=== PATIENT | male | born 1955 | race African-American/Black ===

== ENCOUNTER 2018-12-29 01:32 | Emergency (ER) | payer SELFPAY ==
[~2018-12-29] VITALS: Ht 190.5 cm; Wt 104.3 kg
[~2018-12-29 01:32] MED LIST: CAFERGOT TABLE1 EACH PO; COMPAZINE10 MG PO; CYCLOBENZAPRINE10 MG ORAL; NORCO 10/3251 EA ORAL; PHENERGAN25 M1 PO; PROCHLORPERAZINE5 MG ORAL; REGLAN10 MG ORAL; VICODIN 5-5001 EACH PO
--- NOTE | 2018-12-29 02:09 | NUR ---
ED Nurse Note: PT CAME TO ED FROM HOME C/O LEFT SIDED BACK PAIN RADIATING TO LEFT LEG PAIN 10/10 PER PT HE IS TAKING NORCO AT HOME PT DROVE HIM TO ER. PT DENIES TRAUMA TO AREA PT SAY IT MAY BE RELATED TO LIFTING HIS MOTHER TO BATHTUB
[2018-12-29 02:12] VITALS: BP 156/93
[2018-12-29] MEDS ORDERED: Morphine Sulfate 4mg/ml Inj (IV/IM USE ONLY) IM ONE (02:30)
[2018-12-29] MEDS ORDERED: Methocarbamol 750mg tab ORAL ONE (02:30)
--- NOTE | 2018-12-29 03:15 | NUR ---
ELOPEMENT: PT LEFT WITHOUT DC PAPERS
[2018-12-29 03:17] VITALS: BP 156/93
--- NOTE | 2018-12-29 21:28 | Emergency Room Report ---
History of Present Illness General Chief Complaint: Back Pain-No Injury Source: Patient Present Illness HPI 54-year-old male presents ED complaining of back pain. Started 3 days ago after lifting his mother in the bathtub. Sharp, 9 out of 10, radiating down the left leg. Denies bowel or bladder incontinence. Denies leg or motor weakness. States he took some [place] prescribed to him previously without significant relief. Denies fevers or chills. Denies dysuria or hematuria. No other aggravating relieving factors. Denies any other associated symptoms Allergies: Uncoded Allergies: MAXALT, TORADOL (Allergy, Unknown, 12/29/18) Patient History Past Medical History: DM Past Surgical History: none Pertinent Family History: none Social History: Denies: smoking, alcohol use, drug use Immunizations: UTD Reviewed Nursing Documentation: PMH: Agreed; PSxH: Agreed Nursing Documentation-PMH Hx Diabetes: Yes Review of Systems All Other Systems: negative except mentioned in HPI Physical Exam Vital Signs Date Time Temp Pulse Resp B/P (MAP) Pulse Ox O2 Delivery O2 Flow Rate FiO2 12/29/18 02:02 98.2 101 20 156/93 99 Room Air Sp02 EP Interpretation: reviewed, normal General Appearance: alert, GCS 15, non-toxic, mild distress Head: normocephalic Eyes: bilateral eye normal inspection, bilateral eye PERRL ENT: normal ENT inspection Neck: normal inspection Respiratory: chest non-tender, lungs clear, normal breath sounds, speaking full sentences Cardiovascular #1: regular rate, rhythm, no edema Gastrointestinal: normal inspection Rectal: deferred Genitourinary: no CVA tenderness, no vertebral tenderness Musculoskeletal: tender - paraspinal lumbar tenderness Neurologic: alert, oriented x3, responsive, motor strength/tone normal, sensory intact, speech normal Psychiatric: normal inspection Skin: normal inspection Lymphatic: normal inspection Medical Decision Making Diagnostic Impression: Primary Impression: Back pain Qualified Codes: M54.42 - Lumbago with sciatica, left side ER Course Hospital Course 54-year-old male presents ED complaining of lower back pain Differential diagnoses include: pyelonephritis, kidney stone, muscle strain, Lspine fracture Clinical course Patient placed on stretcher. After initial history, physical exam reveals a middle-aged male in mild distress. There is no vertebral body tenderness. There is paraspinal lumbar tenderness. No flank pain. No indication for imaging at this time. Consideration for sciatica based on clinical exam. given morphine IM, robaxin, lidoderm patch Patient observed with improved pain. Patient eloped from ED prior to receiving discharge papers Diagnosis - back pain patient eloped from ED Last Vital Signs Date Time Temp Pulse Resp B/P (MAP) Pulse Ox O2 Delivery O2 Flow Rate FiO2 12/29/18 03:17 98.2 101 20 156/93 99 Room Air Status: improved Disposition: ELOPED Condition: Stable Referrals: NOT CHOSEN IPA/,REFERRING (PCP) Vish Flores MD Dec 29, 2018 21:28
== END 2018-12-29 03:15 | disposition left against medical advice (07) ==
LOC: EDBD → EMR 02:20 → MERGE 02:20 → EMR 03:15
DX: M54.42 Lumbago with sciatica, left side (principal); E11.9 Type 2 diabetes mellitus without complications; Z88.8 Allergy status to other drugs, medicaments and biological substances
CPT/HCPCS: 96372; 99283; J2270

== ENCOUNTER 2019-03-21 11:39 | Emergency (ER) | payer SELFPAY ==
[~2019-03-21] VITALS: Ht 190.5 cm; Wt 103.0 kg
[~2019-03-21 11:39] MED LIST changes: +COMPAZINE10 MG ORAL; +IBUPROFEN600 MG ORAL; +PHENERGAN25 M1 ORAL; +PREDNISONE20 MG ORAL; +TYLENOL325 MG ORAL
[2019-03-21 11:49] VITALS: BP 159/110
[2019-03-21] MEDS ORDERED: NORCO 10-325 T1 EACH ORAL (11:56)
[2019-03-21] MEDS ORDERED: CAFERGOT TABLE1 EACH PO (11:57)
[2019-03-21] MEDS ORDERED: ZOFRAN ODT8 MG ORAL (11:57)
[2019-03-21] MEDS ORDERED: METFORMIN500 MG/5 M PO (11:58)
[2019-03-21] MEDS ORDERED: REGLAN10 MG ORAL (11:59)
[2019-03-21] MEDS ORDERED: COMPAZINE10 M2 PO (11:59)
[2019-03-21] MEDS ORDERED: LIDOCAINE700 M1 TP (12:26)
[2019-03-21] MEDS ORDERED: PERCOCET 5-3251 EACH ORAL (12:26)
[2019-03-21] MEDS ORDERED: Morphine Sulfate 2mg/ml Inj(IV/IM USE ONLY) IM ONE (12:30)
--- NOTE | 2019-03-21 12:30 | Emergency Room Report ---
History of Present Illness General Chief Complaint: Lower Back Pain or Injury Source: Patient Present Illness HPI Patient is a 54-year-old male presented after increased low back pain. Patient prior history of chronic back pain for which she has had previous MRIs. He reportedly had prior history of L4 disc disease. He states that he had increased pain radiating to his left leg. Pain is worse with movement. He denies any bowel or bladder dysfunction. He denies any weight loss. He states that he is not losing any weight. He reports having some radiation to his left lower extremity. He had been able to ambulate. Patient reports having prior history of allergy to Toradol. He states that he is diabetic and takes metformin. Allergies: Coded Allergies: RIZATRIPTAN (Verified Allergy, Intermediate, Rash, 08/20/14) KETOROLAC (Unverified Allergy, Mild, Rash, 08/20/14) IBUPROFEN (Verified Allergy, Unknown, 03/21/19) Uncoded Allergies: MAXSALT (Allergy, Mild, Rash, 08/20/14) MAXALT (Allergy, Unknown, 12/09/17) MAXALT, TORADOL (Allergy, Unknown, 01/02/19) TORADOL (Allergy, Unknown, 12/09/17) Patient History Past Medical History: see triage record Reviewed Nursing Documentation: PMH: Agreed; PSxH: Agreed Nursing Documentation-PMH Past Medical History: No History, Except For Hx Cardiac Problems: No - migraines Hx Diabetes: Yes - type 2 Review of Systems All Other Systems: negative except mentioned in HPI Physical Exam Vital Signs Date Time Temp Pulse Resp B/P (MAP) Pulse Ox O2 Delivery O2 Flow Rate FiO2 03/21/19 11:49 98.1 94 20 159/110 95 Room Air General Appearance: well appearing, no apparent distress, alert, GCS 15 Head: normocephalic, atraumatic ENT: hearing grossly normal, normal voice Neck: full range of motion, supple Respiratory: no respiratory distress, speaking full sentences Cardiovascular #1: normal inspection Gastrointestinal: normal inspection, normal bowel sounds Musculoskeletal: normal inspection, no calf tenderness, decreased range of mation, other - increased pain with ROM Neurologic: normal inspection, alert, oriented x3, responsive, normal gait Psychiatric: mood/affect normal Skin: no rash Medical Decision Making Diagnostic Impression: Primary Impression: Lumbar disc disease Additional Impression: Chronic pain ER Course Patient presented for low back pain. Differential diagnosis included but was not limited to herniated disc, cauda equina syndrome, abdominal aortic aneurysm , perforated ulcer, spinal epidural abscess, spinal stenosis, lumbar fracture, metastatic lesion, pyelonephritis. Patient has a benign exam and does not appear to require any further imaging or laboratory testing at this time. Patient appears to have some evidence of sciatica. Patient does not have any significant CVA tenderness or any neurologic deficit. Patient was noted to be ambulatory without assistance. Patient reports having multiple medication allergies.The [facility] database was reviewed for the patient's prior prescription history. Patient was given medications for pain. He was advised to follow-up with his primary care physician for further evaluation and treatment. He was given prescription for pain medications. Last Vital Signs Date Time Temp Pulse Resp B/P (MAP) Pulse Ox O2 Delivery O2 Flow Rate FiO2 03/21/19 11:49 98.0 94 20 159/110 95 Room Air Status: improved Disposition: HOME, SELF-CARE Condition: Stable Scripts Lidocaine (Lidocaine) 1 Each Adh..patch 5 % TP DAILY, #30 PATCH Prov: Pankaj Morgan MD 03/21/19 Oxycodone/Acetaminophen 5-325* (PERCOCET 5-325 MG TABLET*) 1 Each Tablet 1 TAB ORAL Q4H PRN for For Pain, #15 TAB 0 Refills Prov: Pankaj Morgan MD 03/21/19 Patient Instructions: Sciatica With Rehab[facility] Pankaj Morgan MD Mar 21, 2019 12:30
[2019-03-21 12:44] VITALS: BP 145/97
== END 2019-03-21 12:45 | disposition home or self-care (01) ==
LOC: EDBD → EMR 12:44 → MERGE 12:44 → EMR 12:45
DX: M51.36 Other intervertebral disc degeneration, lumbar region (principal); E11.9 Type 2 diabetes mellitus without complications; Z88.8 Allergy status to other drugs, medicaments and biological substances; Z88.6 Allergy status to analgesic agent; Z79.84 Long term (current) use of oral hypoglycemic drugs
CPT/HCPCS: 96372; 99282; J2270

== ENCOUNTER 2019-04-30 16:20 | Emergency (ER) | payer SELFPAY ==
[~2019-04-30] VITALS: Ht 190.5 cm; Wt 103.0 kg
[~2019-04-30 16:20] MED LIST changes: +COMPAZINE10 M2 PO; +LIDOCAINE700 M1 TP; +METFORMIN500 MG/5 M PO; +NORCO 10-325 T1 EACH ORAL; +PERCOCET 5-3251 EACH ORAL; +ZOFRAN ODT8 MG ORAL
[2019-04-30 16:35] VITALS: BP 170/99
--- NOTE | 2019-04-30 16:35 | NUR ---
ED Nurse Note: pt walked in due to sciatica nerve pain, pt stated that the pain started 7 days ago and he was taking percocet and lidocaine patch, pt is complaining of 10/10 pain from the right hip radiating to the right leg, pt able to walk but stated that its hurts a lot when he is on sitting position.
--- NOTE | 2019-04-30 17:01 | Emergency Room Report ---
History of Present Illness General Chief Complaint: Pain Source: Patient Present Illness HPI 54-year-old male presents to the emergency department complaining of 10 out of 10 severity left-sided low back pain with sciatica down the left posterior leg x1 week. Patient reports that his symptoms have progressed the past 2 days. Patient states that this is not the first occurrence and states that he was previously diagnosed with sciatica he explains that he exacerbated his symptoms when attempting to help lift his mother out of the bathtub at home 1 week ago. He denies recent spinal procedures or history of cancer he states he has been taking Soma and Petros's at home with no relief. He denies appreciable trauma or fall otherwise he denies midline neck or back pain. Denies numbness tingling or loss of sensation or gross motor movements of the extremities, incontinence of bowel or bladder. Denies CP, Palpitations, LOC, AMS, dizziness, Changes in Vision, weakness or a sudden severe headache. He reports inability to find a POC. Denies fevers, chills or hematuria. Allergies: Coded Allergies: RIZATRIPTAN (Verified Allergy, Intermediate, Rash, 08/20/14) KETOROLAC (Unverified Allergy, Mild, Rash, 08/20/14) IBUPROFEN (Verified Allergy, Unknown, 03/21/19) Uncoded Allergies: MAXSALT (Allergy, Mild, Rash, 08/20/14) MAXALT (Allergy, Unknown, 12/09/17) MAXALT, TORADOL (Allergy, Unknown, 01/02/19) TORADOL (Allergy, Unknown, 12/09/17) Patient History Past Medical History: see triage record Past Surgical History: none Pertinent Family History: none Reviewed Nursing Documentation: PMH: Agreed; PSxH: Agreed Nursing Documentation-PMH Past Medical History: No History, Except For Hx Cardiac Problems: No - MIGRANE Hx Diabetes: Yes Review of Systems All Other Systems: negative except mentioned in HPI Physical Exam Vital Signs Date Time Temp Pulse Resp B/P (MAP) Pulse Ox O2 Delivery O2 Flow Rate FiO2 04/30/19 16:23 98.1 79 18 170/99 (122) 98 Room Air Sp02 EP Interpretation: reviewed, normal General Appearance: alert, GCS 15, non-toxic, moderate distress Head: normocephalic, atraumatic Eyes: bilateral eye normal inspection, bilateral eye PERRL ENT: hearing grossly normal, normal voice Neck: full range of motion Respiratory: lungs clear, normal breath sounds, speaking full sentences Cardiovascular #1: regular rate, rhythm Gastrointestinal: non tender, soft Genitourinary: normal inspection, no CVA tenderness Musculoskeletal: gait/station normal - compensatory, bent slightly forward., tender - Moderate Tenderness to palpation to Left paraspinal muscles of the lower back without midline tenderness Neurologic: alert, oriented x3, responsive, motor strength/tone normal, sensory intact, speech normal, grossly normal Psychiatric: judgement/insight normal Skin: normal color, no rash, warm/dry, well hydrated Medical Decision Making PA Attestation Dr. Morgan is my supervising Physician whom patient management has been discussed with. Diagnostic Impression: Primary Impression: Exacerbation of chronic back pain Additional Impression: Sciatic nerve pain Qualified Codes: M54.32 - Sciatica, left side ER Course 54-year-old male presents to the emergency department complaining of 10 out of 10 severity left-sided low back pain with sciatica down the left posterior leg x1 week. Patient reports that his symptoms have progressed the past 2 days. Patient states that this is not the first occurrence and states that he was previously diagnosed with sciatica he explains that he exacerbated his symptoms when attempting to help lift his mother out of the bathtub at home 1 week ago. He denies recent spinal procedures or history of cancer he states he has been taking Soma and Petros's at home with no relief. He denies appreciable trauma or fall otherwise he denies midline neck or back pain. Denies numbness tingling or loss of sensation or gross motor movements of the extremities, incontinence of bowel or bladder. Denies CP, Palpitations, LOC, AMS, dizziness, Changes in Vision, weakness or a sudden severe headache. He reports inability to find a POC. Denies fevers, chills or hematuria. Pt. presents to ED c/o LBP. Ddx considered: epidural abscess, fracture, sprain/strain, meningitis, spinal chord injury, sciatica, cauda equina, Pyelonephritis, renal calculi just to name a few. Vital signs reviewed and are WNL during ED visit. Pt. is afebrile with no signs of infection No new symptoms, and denies recent trauma. No saddle anesthesia noted, Pt. denies incontinence Neurovascular is intact ROM is limited due to pain * Moderate Tenderness to palpation to Left paraspinal muscles of the lower back without midline tenderness. *Pt. describes pain today as moderate and radiates across the lower back and down the posterior of the left leg. ORDERS: none warranted at this time. INTERVENTIONS: (Pt. tx with regimen from previous visit which provided the pt. with relief). -8mg Morphine IM -Lidoderm TP D/W Pt. that for further pain management is it recommended to consult PCP or a Chronic Pain management doctor. A provider who can safely prescribe controlled substances with close follow up. DISCHARGE: At this time pt. is stable for d/c to home. Will provide printed patient care instructions, and any necessary prescriptions. Care plan and follow up instructions have been discussed with the patient prior to discharge. Last Vital Signs Date Time Temp Pulse Resp B/P (MAP) Pulse Ox O2 Delivery O2 Flow Rate FiO2 04/30/19 16:35 98.1 88 18 170/99 98 Room Air Disposition: HOME, SELF-CARE Condition: Stable Scripts Methocarbamol* (ROBAXIN-750*) 750 Mg Tablet 750 MG PO TID, #21 TAB 0 Refills Prov: Malia Myers 04/30/19 Patient Instructions: Back Pain, Adult, [id number], Medical Screening Exam Additional Instructions: Take medications as directed. Follow up with a Primary Care Provider in 3-5 days, even if your symptoms have resolved. Return sooner to ED if new symptoms occur, or current symptoms become worse. Do not drink alcohol, drive, or operate heavy machinery while taking Robaxin ( Muscle Relaxers) as this may cause drowsiness. - Please note that this Emergency Department Report was dictated using [employer] sales representative technology software, occasionally this can lead to erroneous entry secondary to interpretation by the dictation equipment. Malia Myers Apr 30, 2019 17:01
[2019-04-30] MEDS ORDERED: ROBAXIN-750750 MG PO (17:14)
[2019-04-30] MEDS ORDERED: Morphine Sulfate 2mg/ml Inj(IV/IM USE ONLY) IM ONE (17:15)
--- NOTE | 2019-04-30 17:23 | NUR ---
ED Nurse Note: pt medicated and tolerated well
[2019-04-30 17:24] VITALS: BP 158/94
--- NOTE | 2019-04-30 17:24 | NUR ---
ER DISCHARGE NOTE: Patient is cleared to be discharged per ERMD, pt is aox4, on room air, with stable vital signs. pt was given dc and prescription instructions, pt was able to verbalize understanding, pt id band removed without complications. pt is able to ambulate with steady gait. pt took all belongings.
== END 2019-04-30 17:24 | disposition home or self-care (01) ==
LOC: EMR 17:00
DX: M54.42 Lumbago with sciatica, left side (principal); G89.29 Other chronic pain; E11.9 Type 2 diabetes mellitus without complications; Z88.6 Allergy status to analgesic agent; Z88.8 Allergy status to other drugs, medicaments and biological substances
CPT/HCPCS: 96372; 99283; J2270

== ENCOUNTER 2019-06-11 15:02 | Emergency (ER) | payer SELFPAY ==
[~2019-06-11] VITALS: Ht 182.9 cm; Wt 102.1 kg
[~2019-06-11 15:02] MED LIST changes: +ROBAXIN-750750 MG PO
[2019-06-11 15:30] VITALS: BP 178/103
--- NOTE | 2019-06-11 15:30 | NUR ---
ED Nurse Note: pt walked in due to sciatica pain started 7 days ago and got worsen 2 days ago. pt was seen by petar carney. will continue to monitor.
[2019-06-11] MEDS ORDERED: Morphine Sulfate 2mg/ml Inj(IV/IM USE ONLY) IM ONE (16:00)
--- NOTE | 2019-06-11 16:02 | NUR ---
ED Nurse Note: pt medicated as ordered and able to tolerate well. will continue to monitor.
--- NOTE | 2019-06-11 16:17 | Emergency Room Report ---
History of Present Illness General Chief Complaint: Lower Back Pain or Injury Source: Patient Present Illness HPI 55-year-old male presents to the emergency department complaining of exacerbation of his chronic low back pain with left-sided sciatica. Patient reports that he had onset of his symptoms 4 days ago when he attempted to help someone moving some furniture. Patient states that he has been having more frequent exacerbations the last one being last month. Patient states he has not followed up with a pain management provider yet. Patient denies recent spinal procedures, night sweats or history of neoplastic disease. Denies dysuria , hematuria, or urinary frequency. Patient states that his symptoms are similar in character to previous exacerbations that he has experienced he denies any changes in his symptoms. Patient denies fevers or chills he denies appreciable trauma or fall he denies saddle anesthesia, urinary incontinence or urinary retention. Patient also notes that he has had a migraine x3 days that is consistent with his history of chronic migraines he does see a neurologist for this and is on medication. Patient states that he took 8 mg Zofran prior to arrival as his Reglan was not working this morning. Denies N/V. Denies dizziness , photophobia, neck pain/stiffness. Patient states that his migraine has begun to subside though however he continues to have his exacerbated left-sided low back pain with sciatica. Denies any other complaints at this time denies any relieving factors. Allergies: Coded Allergies: RIZATRIPTAN (Verified Allergy, Intermediate, Rash, 08/20/14) KETOROLAC (Unverified Allergy, Mild, Rash, 08/20/14) IBUPROFEN (Verified Allergy, Unknown, 03/21/19) Uncoded Allergies: MAXSALT (Allergy, Mild, Rash, 08/20/14) MAXALT (Allergy, Unknown, 12/09/17) MAXALT, TORADOL (Allergy, Unknown, 01/02/19) TORADOL (Allergy, Unknown, 12/09/17) Patient History Past Medical History: see triage record Past Surgical History: none Pertinent Family History: none Reviewed Nursing Documentation: PMH: Agreed; PSxH: Agreed Nursing Documentation-PMH Past Medical History: No History, Except For Hx Cardiac Problems: No - MIGRANE Hx Diabetes: Yes Review of Systems All Other Systems: negative except mentioned in HPI Physical Exam Vital Signs Date Time Temp Pulse Resp B/P (MAP) Pulse Ox O2 Delivery O2 Flow Rate FiO2 06/11/19 15:15 98.4 83 20 178/103 (128) 96 Room Air Sp02 EP Interpretation: reviewed, normal General Appearance: alert, GCS 15, non-toxic, moderate distress Head: normocephalic, atraumatic Eyes: bilateral eye normal inspection, bilateral eye PERRL, bilateral eye other - no photophobia ENT: hearing grossly normal, normal voice Neck: full range of motion, no meningismus Respiratory: chest non-tender, lungs clear, normal breath sounds, no wheezing, speaking full sentences Cardiovascular #1: regular rate, rhythm Gastrointestinal: non tender, soft Rectal: deferred Genitourinary: normal inspection, no CVA tenderness Musculoskeletal: gait/station normal - mildly compensatory, normal range of motion, tender - Left lumbar Paraspinal and upper gluteal TTP of the musculature , FROM with exacerbation of pain temporarily in certain flexed positions, no LE weakness, pt. is NVI, no erythema, midline bony ttp, step-offs or obvious deformity. Neurologic: alert, oriented x3, responsive, motor strength/tone normal, sensory intact, normal gait, speech normal, other - no saddle anesthesia and no gross weakness, grossly normal Psychiatric: judgement/insight normal Lymphatic: no adenopathy Medical Decision Making PA Attestation Dr. Lopez Is my supervising Physician whom patient management has been discussed with. Diagnostic Impression: Primary Impression: Chronic pain Qualified Codes: G89.29 - Other chronic pain Additional Impression: Migraine headache Qualified Codes: G43.101 - Migraine with aura, not intractable, with status migrainosus ER Course 55-year-old male presents to the emergency department complaining of exacerbation of his chronic low back pain with left-sided sciatica. Patient reports that he had onset of his symptoms 4 days ago when he attempted to help someone moving some furniture. Patient states that he has been having more frequent exacerbations the last one being last month. Patient states he has not followed up with a pain management provider yet. Patient denies recent spinal procedures, night sweats or history of neoplastic disease. Denies dysuria , hematuria, or urinary frequency. Patient states that his symptoms are similar in character to previous exacerbations that he has experienced he denies any changes in his symptoms. Patient denies fevers or chills he denies appreciable trauma or fall he denies saddle anesthesia, urinary incontinence or urinary retention. Patient also notes that he has had a migraine x3 days that is consistent with his history of chronic migraines he does see a neurologist for this and is on medication. Patient states that he took 8 mg Zofran prior to arrival as his Reglan was not working this morning. Denies N/V. Denies dizziness , photophobia, neck pain/stiffness. Patient states that his migraine has begun to subside though however he continues to have his exacerbated left-sided low back pain with sciatica. Denies any other complaints at this time denies any relieving factors. Ddx considered but are not limited to Fracture, dislocation, contusion, epidural abscess, Sprain/Strain/Spasm, Drug seeking. Vital signs: are WNL, pt. is afebrile H&PE are most consistent with exacerbation of chronic sciatica ORDERS: X-ray not required at this time, no spinous process tenderness, s/x consistent in character as previous exacerbations and no new neurological findings/deficits. ED INTERVENTIONS: - 8mg Morphine IM -Lidoderm TP Re-Evaluation: pt. states his pain has subsided with ED interventions DISCHARGE: At this time pt. is stable for d/c to home. Will provide printed patient care instructions, and any necessary prescriptions. Care plan and follow up instructions have been discussed with the patient prior to discharge. Last Vital Signs Date Time Temp Pulse Resp B/P (MAP) Pulse Ox O2 Delivery O2 Flow Rate FiO2 06/11/19 15:30 98.4 88 20 178/103 96 Room Air Disposition: HOME, SELF-CARE Condition: Stable Scripts Cyclobenzaprine Hcl (FEXMID) 7.5 Mg Tablet 7.5 MG PO Q6HR, #28 TAB Prov: Malia Myers 06/11/19 Patient Instructions: Chronic Back Pain, Migraine Headache, [id number] Additional Instructions: Take medications as directed. Follow up with a Primary Care Provider in 3-5 days, even if your symptoms have resolved. --Please review list of primary care clinics, if you do not already have a primary care provider Return sooner to ED if new symptoms occur, or current symptoms become worse. Do not drink alcohol, drive, or operate heavy machinery while taking Robaxin as this may cause drowsiness. - Please note that this Emergency Department Report was dictated using [employer] technology software, occasionally this can lead to erroneous entry secondary to interpretation by the dictation equipment. Malia Myres Jun 11, 2019 16:17
[2019-06-11] MEDS ORDERED: FEXMID7.5 MG PO (16:18)
[2019-06-11 16:20] VITALS: BP 135/80
== END 2019-06-11 16:20 | disposition home or self-care (01) ==
LOC: EMR 16:15
DX: G89.29 Other chronic pain (principal); M54.5 Low back pain; G43.101 Migraine with aura, not intractable, with status migrainosus; Z88.8 Allergy status to other drugs, medicaments and biological substances; Z88.6 Allergy status to analgesic agent; E11.9 Type 2 diabetes mellitus without complications
CPT/HCPCS: 96372; 99283; J2270

== ENCOUNTER 2019-08-19 16:29 | Emergency (ER) | payer SELFPAY ==
[~2019-08-19] VITALS: Ht 190.5 cm; Wt 104.3 kg
[~2019-08-19 16:29] MED LIST changes: +FEXMID7.5 MG PO
[2019-08-19 16:36] VITALS: BP 189/103
--- NOTE | 2019-08-19 16:44 | NUR ---
ED Nurse Note: Pt. AAOx4. Ambualtory. Per pt. he is experiencing back and feet pain. Per pt. the pain is getting worse and it's been a week now Pt. stated that he takes gabapentin 300mg and stated it is not effective for him.
[2019-08-19] MEDS ORDERED: Morphine Sulfate 2mg/ml Inj(IV/IM USE ONLY) IM ONE (17:15)
--- NOTE | 2019-08-19 17:15 | Emergency Room Report ---
History of Present Illness General Chief Complaint: Pain Source: Patient Present Illness HPI 55-year-old male patient presents the ER complaining of sciatica pain. Reports symptoms have been present for the past week. Reports history of sciatica pain for the past several years. Reports was diagnosed with sciatica 1 year ago. Reports radiates down his left leg to his toe. Describes pain as sharp. Reports history of neuropathy secondary to diabetes, states diabetes is well controlled. Denies bowel or bladder incontinence. Denies fever vomiting chills. Denies recent injury or accident. States that he normally takes gabapentin but states it has not been helpful in treating his pain symptoms. Previously seen in this ER for similar symptoms in the past. Allergies: Coded Allergies: RIZATRIPTAN (Verified Allergy, Intermediate, Rash, 08/20/14) KETOROLAC (Unverified Allergy, Mild, Rash, 08/20/14) IBUPROFEN (Verified Allergy, Unknown, 03/21/19) Uncoded Allergies: MAXSALT (Allergy, Mild, Rash, 08/20/14) MAXALT (Allergy, Unknown, 12/09/17) MAXALT, TORADOL (Allergy, Unknown, 01/02/19) TORADOL (Allergy, Unknown, 12/09/17) Patient History Past Medical History: see triage record Reviewed Nursing Documentation: PMH: Agreed; PSxH: Agreed Nursing Documentation-PMH Past Medical History: No History, Except For Hx Cardiac Problems: No - MIGRANE Hx Diabetes: Yes Review of Systems All Other Systems: negative except mentioned in HPI Physical Exam Vital Signs Date Time Temp Pulse Resp B/P (MAP) Pulse Ox O2 Delivery O2 Flow Rate FiO2 08/19/19 16:36 98.6 92 15 189/103 (131) 96 Room Air Sp02 EP Interpretation: reviewed, normal General Appearance: well appearing, no apparent distress, alert, GCS 15, non- toxic Head: normocephalic, atraumatic Eyes: bilateral eye normal inspection, bilateral eye PERRL ENT: hearing grossly normal, normal pharynx, no angioedema, normal voice, uvula midline, moist mucus membranes Neck: full range of motion Respiratory: lungs clear, normal breath sounds, no rhonchi, no respiratory distress, no accessory muscle use, no wheezing, speaking full sentences Gastrointestinal: non tender, soft, no mass, non-distended, no guarding, no rebound Musculoskeletal: back normal, digits/nails normal, gait/station normal, normal range of motion, non-tender, other - Positive straight leg test left no spinous process tenderness, no bony step-off; no podagra Neurologic: alert, oriented x3, responsive, motor strength/tone normal, sensory intact Psychiatric: mood/affect normal Medical Decision Making PA Attestation Dr. Morgan is my supervising Physician whom patient management has been discussed with. Diagnostic Impression: Primary Impression: Chronic pain Additional Impression: Sciatica ER Course Pt presents to ED c/o back pain secondary to sciatica. DDX considered but are not limited to sprain, strain, cauda equine, epidural abscess, AAA, spinal cord compression, kidney stones, spinal stenosis, sciatica. Low suspicion for cauda equina, no bowel or bladder incontinence or retention. No fever, nontoxic appearing, no radiation of pain, low suspicion for epidural mass. No abdominal pain, no blood pressure elevation, nontoxic appearing, low suspicion for AAA. VITAL SIGNS are WNL, patient is afebrile Ordered pain medication. ER COURSE: No recent injuries or accidents, does not require imaging at this time. Provide patient with IM morphine and lidocaine patch in the ER. Reports pain symptoms improved. Patient walking around without difficulty. Advised patient follow-up with primary care provider for further pain relief. Patient with medication at discharge. Cures reviewed. Followup with pain management and/or PT. Request referral from PCP. Followup with PCP for further MRI and/or CT imaging as needed. DISCHARGE: -Rx provided for [place], #15. At this time pt. is stable for d/c to home. At this time patient is resting comfortably, in no acute distress, nontoxic appearing, smiling and talking without difficulty. Will provide printed patient care instructions, and any necessary prescriptions. Patient instructed to follow with primary care provider for further treatment and referral as needed. Care plan and follow up instructions have been discussed with the patient prior to discharge. Patient reports understanding and agreement to treatment plan. Patient questions asked and answered. ER precautions given, patient instructed to return to ER immediately for any new or worsening of symptoms. - Please note that this Emergency Department Report was dictated using [employer] technology software, occasionally this can lead to erroneous entry secondary to interpretation by the dictation equipment. Last Vital Signs Date Time Temp Pulse Resp B/P (MAP) Pulse Ox O2 Delivery O2 Flow Rate FiO2 9/28/19 16:36 98.6 97 15 189/103 96 Room Air Status: improved Disposition: HOME, SELF-CARE Condition: Stable Scripts Hydrocodone Bit/Acetaminophen 5-325* (NORCO 5-325*) 1 Each Tablet 1 TAB ORAL Q6H PRN for For Pain, #12 TAB 0 Refills Prov: Miguel Calvert 08/19/19 Lidocaine (Lidocaine) 1 Each Adh..patch 700 MG TP DAILY for 7 Days, #7 PATCH Prov: Miguel Calvert 08/19/19 Patient Instructions: Sciatica, [id number] Additional Instructions: Patient instructed to follow up with primary care provider 3-5 and specialist regarding sciatica. Patient instructed on rest, ice and heat. Do not take medication prior to drinking, driving, or operating heavy machinery. Take medications as directed. Patient questions asked and answered. ER precautions given, patient instructed to return to ER immediately for any new or worsening of symptoms. Miguel Calvert Aug 19, 2019 17:15
[2019-08-19] MEDS ORDERED: Morphine Sulfate 10mg/ml Inj IM ONE (17:30)
[2019-08-19 17:50] VITALS: BP 165/98
[2019-08-19] MEDS ORDERED: LIDOCAINE700 M1 TP (17:50)
[2019-08-19] MEDS ORDERED: NORCO 5-325 TA1 EACH ORAL (17:50)
[2019-08-19 17:58] VITALS: BP 165/98
--- NOTE | 2019-08-19 17:58 | NUR ---
ER DISCHARGE NOTE: Patient is cleared to be discharged per MARS Sanders, pt is aox4, on room air, with stable vital signs. pt was given dc and prescription instructions, pt was able to verbalize understanding, pt id band removed without complications. pt is able to ambulate with steady gait. pt took all belongings. patient reports his son is taking him back to his house.
== END 2019-08-19 17:58 | disposition home or self-care (01) ==
LOC: EMR 17:10
DX: G89.29 Other chronic pain (principal); M54.32 Sciatica, left side; Z88.8 Allergy status to other drugs, medicaments and biological substances; Z88.6 Allergy status to analgesic agent; E11.40 Type 2 diabetes mellitus with diabetic neuropathy, unspecified
CPT/HCPCS: 96372; 99283; J2270

== ENCOUNTER 2020-06-17 15:20 | Emergency (ER) | payer MEDICAID ==
[~2020-06-17] VITALS: Ht 190.5 cm; Wt 116.6 kg
[~2020-06-17 15:20] MED LIST changes: +NORCO 5-325 TA1 EACH ORAL
[2020-06-17 15:41] VITALS: BP 150/102
[2020-06-17] MEDS ORDERED: Acetaminophen 500mg (ES) tab ORAL ONE (15:45)
[2020-06-17] MEDS ORDERED: DiphenhydrAMINE 50mg/ml Inj IVP ONE (15:45)
[2020-06-17] MEDS ORDERED: dexAMETHasone 10mg/ml Inj IV ONE (15:45)
[2020-06-17] MEDS ORDERED: DiphenhydrAMINE 50mg/ml Inj IM ONE (15:45)
[2020-06-17] MEDS ORDERED: NORCO 5-325 TA1 EAC1 ORAL ×2 (15:49→17:09)
--- NOTE | 2020-06-17 15:49 | Emergency Room Report ---
History of Present Illness General Chief Complaint: General Complaint Source: Patient Present Illness HPI 56-year-old male history of diabetes, hypertension, history of chronic migraines presents with recurrent migraine behind left eye radiates to the right forehead, pulsating, aggravated with light alleviated by hydromorphone, severity is moderate, constant patient denies any sudden onset of headache, not worse in the recumbent position no fevers no chills, no neck stiffness, patient also endorses right and left sciatic pain that is sharp in nature shooting states he is got no bowel bladder retention/incontinence, not sudden onset states he has that chronically and ran out of [employer] patient is requesting a slight bridge, he is requesting 2 mg of hydromorphone to be injected into his right arm as well as Benadryl's patient states that he does not get rebound headaches and that usually works for him. Patient states he was brought in by his family. And states he could be watched at home Allergies: Coded Allergies: RIZATRIPTAN (Verified Allergy, Intermediate, Rash, 08/20/14) KETOROLAC (Unverified Allergy, Mild, Rash, 08/20/14) IBUPROFEN (Verified Allergy, Unknown, 03/21/19) Uncoded Allergies: MAXSALT (Allergy, Mild, Rash, 08/20/14) MAXALT (Allergy, Unknown, 12/09/17) MAXALT, TORADOL (Allergy, Unknown, 01/02/19) TORADOL (Allergy, Unknown, 12/09/17) COVID-19 Screening Contact w/high risk pt: No Experienced COVID-19 symptoms?: No COVID-19 Testing performed WRIST LINER: No Patient History Past Medical History: see triage record Social History: Reports: smoking Reviewed Nursing Documentation: PMH: Agreed; PSxH: Agreed Nursing Documentation-PMH Past Medical History: No Stated History Hx Cardiac Problems: No - MIGRANE Hx Diabetes: Yes - diabetic neuropathy Review of Systems All Other Systems: negative except mentioned in HPI Physical Exam Vital Signs Date Time Temp Pulse Resp B/P (MAP) Pulse Ox O2 Delivery O2 Flow Rate FiO2 06/17/20 15:24 98.8 100 21 150/102 (118) 96 Room Air General Appearance: well appearing, no apparent distress Head: normocephalic, atraumatic ENT: hearing grossly normal, normal voice Neck: full range of motion, supple Respiratory: no respiratory distress, speaking full sentences Musculoskeletal: gait/station normal Neurologic: alert, motor strength/tone normal, school principal III-XII nml as tested, oriented x3, cerebellar normal - Finger-nose testing intact,, normal gait, no pronator, other - No Romberg Psychiatric: mood/affect normal Skin: no rash Medical Decision Making Diagnostic Impression: Primary Impression: Chronic pain Qualified Codes: G89.29 - Other chronic pain ER Course 56-year-old male presents with most likely a migraine headache patient refused CT scan as well as labs patient states he only needs 2 mg of hydromorphone injected intramuscularly, patient is also requesting Benadryl. Patient is also requesting a refill of [place]. Patient with no red flags of headache, not sudden onset, not worse in recumbent position, no fevers no chills, patient with no red flags of back pain, patient with no bowel bladder retention/incontinence, no weakness. Neuro exam completely intact. We will provide patient with injection, Benadryl. We will provide patient with a small bridge for his [place], cures report states that he is 3 days overdue for another prescription patient with most likely a constellation concerning for possible opioid use d/o due to chronic pain counseled patient to follow-up with a primary care doctor and not to utilize the ED for pain medication Last Vital Signs Date Time Temp Pulse Resp B/P (MAP) Pulse Ox O2 Delivery O2 Flow Rate FiO2 06/17/20 15:24 98.8 100 21 150/102 (118) 96 Room Air Disposition: HOME, SELF-CARE Condition: Stable Scripts Hydrocodone Bit/Acetaminophen 5-325* (NORCO 5-325 TABLET*) 1 Each Tablet 1 TAB ORAL Q6H PRN for FOR PAIN, #12 TAB 0 Refills Prov: Carlyle Kaminski MD 06/17/20 Referrals: NON PHYSICIAN (PCP) [facility] Patient Instructions: Chronic Pain Additional Instructions: The patient was provided with discharge instructions, notified to follow-up with a primary care doctor and or specialist in the next 24-48 hours, and to return to the ED if they have worsening of their symptoms. Please note that this report is being documented using [employer] technology. This can lead to erroneous entry secondary to incorrect interpretation by the dictating instrument. Carlyle Kaminski MD Jun 17, 2020 15:49
[2020-06-17 16:28] VITALS: BP 179/88
[2020-06-17 16:34] VITALS: BP 179/88
== END 2020-06-17 16:34 | disposition home or self-care (01) ==
LOC: EMR 15:41
DX: G89.29 Other chronic pain (principal); E11.40 Type 2 diabetes mellitus with diabetic neuropathy, unspecified; Z88.6 Allergy status to analgesic agent
CPT/HCPCS: 96372; J1100; J1170; J1200; Z7502; 99283

== ENCOUNTER 2020-09-07 12:37 | Emergency (ER) | payer MEDICAID, OTHER ==
[~2020-09-07] VITALS: Ht 190.5 cm; Wt 119.7 kg
[~2020-09-07 12:37] MED LIST changes: +NORCO 5-325 TA1 EAC1 ORAL
[2020-09-07 12:50] VITALS: BP 153/93
--- NOTE | 2020-09-07 12:50 | NUR ---
ED Nurse Note: Patient form home and walked in due headache x 4 days. Denies blurring of vision or vomiting. Also c/o back pain. Pt is AOx4, calm and cooperative to care, VSS, on RA, afebrileon triage.
[2020-09-07] MEDS ORDERED: HYDROmorphone 1 MG, DiphenhydrAMINE 25 MG in NS 55 ML IV ONE (13:00)
--- NOTE | 2020-09-07 13:02 | NUR ---
ED Nurse Note: pt refused ct, notified erpa.
--- NOTE | 2020-09-07 13:44 | NUR ---
ED Nurse Note: Pt refused dexamethasone; ERPA notifed. Pt education provided by RN. Med returned to [facility].
--- NOTE | 2020-09-07 13:45 | NUR ---
ED Nurse Note: blood collected, sent to lab
[2020-09-07 13:54] LABS: BASOPHILS % (AUTO) 2.7 % (0.0-2.0); EOSINOPHILS % (AUTO) 2.2 % (0.0-3.0); HEMATOCRIT 43.7 % (42.0-52.0); HEMOGLOBIN 15.5 G/DL (14.2-18.0); LYMPHOCYTES % (AUTO) 46.2 % (20.0-45.0); MEAN CORPUSCULAR VOLUME 90 FL (80-99); PLATELET COUNT 225 K/UL (150-450); RED BLOOD COUNT 4.86 M/UL (4.70-6.10); RED CELL DISTRIBUTION WIDTH 11.1 % (11.6-14.8); WHITE BLOOD COUNT 6.3 K/UL (4.8-10.8)
--- NOTE | 2020-09-07 13:56 | NUR ---
ED Nurse Note: pt unable to provide urine specimen as of now. urinal offered.
[2020-09-07 14:04] LABS: ANION GAP 11 mmol/L (5-15); BLOOD UREA NITROGEN 16 mg/dL (7-18); CALCIUM 9.1 MG/DL (8.5-10.1); CARBON DIOXIDE 28 MMOL/L (21-32); CHLORIDE 103 MMOL/L (98-107); CREATININE 1.2 MG/DL (0.55-1.30); POTASSIUM 3.4 MMOL/L (3.5-5.1); SODIUM 142 MMOL/L (136-145)
[2020-09-07 14:09] LABS: ALANINE AMINOTRANSFERASE 24 U/L (12-78); ALBUMIN 3.8 G/DL (3.4-5.0); ALBUMIN/GLOBULIN RATIO 1.1 (1.0-2.7); ALKALINE PHOSPHATASE 110 U/L (46-116); ASPARTATE AMINO TRANSFERASE 18 U/L (15-37); BILIRUBIN,TOTAL 0.2 MG/DL (0.2-1.0)
--- NOTE | 2020-09-07 14:24 | NUR ---
ED Nurse Note: obtained urine sample, will send to lab
--- NOTE | 2020-09-07 14:28 | Emergency Room Report ---
History of Present Illness General Chief Complaint: Headache Source: Medical Record Present Illness HPI 56-year-old male with history of recurrent migraine headache with the last visit to neurologist over 8 months ago here complaining of worsening headache that started earlier today. Also complains of chronic low back pain. Patient has extensive history of use of [place] and reports that usually when his headache gets bad he goes to the hospital and gets an injection of hydromorphone and Benadryl as well as Compazine. Patient reports that since the last visit that he was here he had not followed up with neurologist nor the primary doctor. During the whole visit patient is speaking to me in full sentences, has our contact with me, does not appear to be bothered by light, denies any dizziness and has normal gait. Denies any recent fall or injury. Refuses to get a head CT scan done. Agrees to simple blood work. Patient is aware that he needs to follow-up with neurologist. Reports that has [place] at home will continue to take them after he did use his usual in "cocktail" here. Allergies: Coded Allergies: RIZATRIPTAN (Verified Allergy, Intermediate, Rash, 08/20/14) KETOROLAC (Unverified Allergy, Mild, Rash, 08/20/14) IBUPROFEN (Verified Allergy, Unknown, 03/21/19) Uncoded Allergies: MAXSALT (Allergy, Mild, Rash, 08/20/14) MAXALT (Allergy, Unknown, 12/09/17) MAXALT, TORADOL (Allergy, Unknown, 01/02/19) TORADOL (Allergy, Unknown, 12/09/17) COVID-19 Screening Contact w/high risk pt: No Experienced COVID-19 symptoms?: Yes COVID-19 Testing performed GRADUATE CIVIL ENGINEER: No Patient History Past Medical History: see triage record Past Surgical History: none Pertinent Family History: none Immunizations: UTD Reviewed Nursing Documentation: PMH: Agreed; PSxH: Agreed Nursing Documentation-PMH Past Medical History: No History, Except For Hx Cardiac Problems: No - MIGRANE Hx Diabetes: Yes - diabetic neuropathy Review of Systems All Other Systems: negative except mentioned in HPI Physical Exam Vital Signs Date Time Temp Pulse Resp B/P (MAP) Pulse Ox O2 Delivery O2 Flow Rate FiO2 09/07/20 12:47 98.1 94 15 153/93 (113) 95 Room Air Sp02 EP Interpretation: reviewed, normal General Appearance: normal inspection, well appearing, alert, non-toxic Head: normocephalic, atraumatic Eyes: bilateral eye normal inspection, bilateral eye PERRL ENT: normal ENT inspection Neck: normal inspection, full range of motion Respiratory: chest non-tender, lungs clear, normal breath sounds, no rhonchi, speaking full sentences Cardiovascular #1: regular rate, rhythm, no edema Cardiovascular #2: 2+ dorsalis pedis (L) Gastrointestinal: soft, non-distended Musculoskeletal: gait/station normal Neurologic: alert, oriented Psychiatric: normal inspection Skin: no rash Lymphatic: no adenopathy Medical Decision Making PA Attestation All my diagnosis and treatment plans were reviewed ad discussed with my supervising physician Dr. Flores Diagnostic Impression: Primary Impression: Chronic pain Additional Impression: Headache ER Course 56-year-old male with history of recurrent migraine headache with the last visit to neurologist over 8 months ago here complaining of worsening headache that started earlier today. Also complains of chronic low back pain. Patient has extensive history of use of [place] and reports that usually when his headache gets bad he goes to the hospital and gets an injection of hydromorphone and Benadryl as well as Compazine. Patient reports that since the last visit that jesica machuca was here he had not followed up with neurologist nor the primary doctor. During the whole visit patient is speaking to me in full sentences, has our contact with me, does not appear to be bothered by light, denies any dizziness and has normal gait. Denies any recent fall or injury. Refuses to get a head CT scan done. Agrees to simple blood work. Patient is aware that he needs to follow-up with neurologist. Reports that has [place] at home will continue to take them after he did use his usual in "cocktail" here. Ddx considered but are not limited to: Migraine headache with aura, migraine headache without aura, tension headache, cluster headache, TBI, subarachnoid hemorrhage Vital signs: are WNL, pt. is afebrile H&PE are most consistent with: Chronic pain and headache ORDERS: CBC, CMP, tox screen, refused head CT. ER intervention: Hydromorphone IM, Compazine, Benadryl, patient refused. Dexamethasone DISCHARGE: At this time pt. is stable for d/c to home. Will provide printed patient care instructions, and any necessary prescriptions. Care plan and follow up instructions have been discussed with the patient prior to discharge. Patient take medication as directed prescribed by neurologist, follow-up with neurologist for recurrences of migraine headache, if worsening symptoms return to the emergency room Last Vital Signs Date Time Temp Pulse Resp B/P (MAP) Pulse Ox O2 Delivery O2 Flow Rate FiO2 09/07/20 12:50 98.1 15 153/93 95 Room Air 09/07/20 12:47 94 Disposition: HOME, SELF-CARE Condition: Stable Referrals: NON PHYSICIAN (PCP) Patient Instructions: Chronic Pain, General Headache Without Cause, Migraine Headache Additional Instructions: Follow-up with neurologist, take your medication at home, if worsening symptom r eturn to the emergency room Mariana Skinner Sep 07, 2020 14:28
[2020-09-07 14:30] LABS: APPEARANCE,URINE CLEAR; BILIRUBIN, URINE NEGATIVE (NEGATIVE); COLOR,URINE PALE YELLOW; GLUCOSE, URINE (UA) NEGATIVE (NEGATIVE); KETONES,URINE NEGATIVE (NEGATIVE); LEUKOCYTE ESTERASE ,URINE NEGATIVE (NEGATIVE); NITRITE,URINE NEGATIVE (NEGATIVE); PH,URINE 6 (4.5-8.0); PROTEIN,URINE NEGATIVE (NEGATIVE); UROBILINOGEN,URINE NORMAL MG/DL (0.0-1.0)
[2020-09-07 14:32] VITALS: BP 158/90
--- NOTE | 2020-09-07 14:32 | NUR ---
ER DISCHARGE NOTE: Pt is cleared to be discharged per ERPA, pt is aox4, on room air, with stable vital signs. pt was given dc and prescription instructions, pt was able to verbalize understanding, pt id band and iv site removed without complications. pt is able to ambulate with steady gait. pt took all belongings.
== END 2020-09-07 14:32 | disposition home or self-care (01) ==
LOC: EMR 13:07
DX: R51.9 Headache, unspecified (principal); G89.29 Other chronic pain; M54.5 Low back pain; Z88.6 Allergy status to analgesic agent; Z88.8 Allergy status to other drugs, medicaments and biological substances; E11.40 Type 2 diabetes mellitus with diabetic neuropathy, unspecified
CPT/HCPCS: 36415; 80053; 80307; 81003; 85025; 96365; 96372; J0780; J1170; J1200; Z7502; 99284

== ENCOUNTER 2020-10-15 13:36 | Emergency (ER) | payer OTHER ==
[~2020-10-15] VITALS: Ht 190.5 cm; Wt 122.5 kg
[2020-10-15 14:05] VITALS: BP 153/95
--- NOTE | 2020-10-15 14:05 | NUR ---
ED Nurse Note: pt presents to ED c/o back and L knee pain. pt reports that he had knee surgery at [facility] on 09/03 and was d/c on 09/06. he was given percocet for px management but it has not been effective. pt reports he has a f/u appt with his surgeon on 10/18 and needs something for pain control until then.
[2020-10-15] MEDS ORDERED: HYDROmorphone 1 MG in NS 55 ML IV ONE (14:15)
--- NOTE | 2020-10-15 14:27 | Emergency Room Report ---
History of Present Illness General Chief Complaint: Pain Source: Patient (Mariana Skinner) Present Illness HPI 56-year-old male s/p total knee replacement that occurred on October 04, 2020 reports that he is currently taking oxycodone is not helping his pain. Patient has an appointment coming up with surgeon in [facility] on 18 October. Patient reports that" my surgeon told me to go to the nearest hospital and get a shot of 2 mg hydromorphone IM for longer lasting effects." Patient also reports "you do not have to give me Reglan and Benadryl I have that at home." No signs of infection noted. Patient at first refuses to get any blood work or imaging is reports" it is not infected and have not had a blood clot I just need my pain medication and go" advised patient that since he is status post surgery we need to do the x-ray as well as venous duplex ultrasound of lower extremity blood work to rule out infection.. Also I told patient that we will give 1 mg of Dilaudid which is diluted with saline IV. Patient is neurovascularly intact and has full strength in the affected side. Denies chest pain shortness of breath. (Mariana Skinner) Allergies: Coded Allergies: RIZATRIPTAN (Verified Allergy, Intermediate, Rash, 08/20/14) KETOROLAC (Unverified Allergy, Mild, Rash, 08/20/14) IBUPROFEN (Verified Allergy, Unknown, 03/21/19) Uncoded Allergies: MAXSALT (Allergy, Mild, Rash, 08/20/14) MAXALT (Allergy, Unknown, 12/09/17) MAXALT, TORADOL (Allergy, Unknown, 01/02/19) TORADOL (Allergy, Unknown, 12/09/17) COVID-19 Screening Contact w/high risk pt: Yes Experienced COVID-19 symptoms?: No COVID-19 Testing performed [employer]CH[employer]ICIAN: Yes COVID-19 Screening: Negative COVID-19 COVID-19 Testing Source: nasal (Mariana Skinner) Patient History Past Medical History: see triage record Past Surgical History: none Pertinent Family History: none Reviewed Nursing Documentation: PMH: Agreed; PSxH: Agreed (Mariana Skinner) Nursing Documentation-PMH Past Medical History: No History, Except For Hx Cardiac Problems: No - MIGRANE Hx Diabetes: Yes - diabetic neuropathy (Mariana Skinner) Review of Systems All Other Systems: negative except mentioned in HPI (Mariana Skinner) Physical Exam Vital Signs Date Time Temp Pulse Resp B/P (MAP) Pulse Ox O2 Delivery O2 Flow Rate FiO2 10/15/20 13:53 97.2 89 16 153/95 (114) 99 Room Air Sp02 EP Interpretation: reviewed, normal General Appearance: no apparent distress, alert, GCS 15, non-toxic Head: normocephalic, atraumatic Eyes: bilateral eye normal inspection, bilateral eye PERRL ENT: hearing grossly normal, normal pharynx, no angioedema, normal voice Neck: full range of motion, supple/symm/no masses Respiratory: chest non-tender, lungs clear, normal breath sounds, no rhonchi, no respiratory distress, no wheezing, speaking full sentences Cardiovascular #1: regular rate, rhythm, no edema Cardiovascular #2: 2+ carotid (R), 2+ carotid (L), 2+ radial (R), 2+ radial (L), 2+ dorsalis pedis (R), 2+ dorsalis pedis (L) Gastrointestinal: soft Genitourinary: no CVA tenderness Musculoskeletal: back normal, no calf tenderness, Brenda's Sign negative, non- tender, other - Surgical site intact and no pus drainage noted Neurologic: alert, motor strength/tone normal, oriented x3, sensory intact, responsive, speech normal Psychiatric: judgement/insight normal, memory normal, mood/affect normal, no suicidal/homicidal ideation Skin: palpation normal Lymphatic: no adenopathy (Mariana Skinner) Medical Decision Making PA Attestation All diagnoses and treatment plans were reviewed and discussed with my supervising physician Dr. Lopez (Mariana Skinner) Diagnostic Impression: Primary Impression: Post-op pain ER Course 56-year-old male s/p total knee replacement that occurred on October 04, 2020 reports that he is currently taking oxycodone is not helping his pain. Patient has an appointment coming up with surgeon in [facility] on 18 October. Patient reports that" my surgeon told me to go to the nearest hospital and get a shot of 2 mg hydromorphone IM for longer lasting effects." Patient also reports "you do not have to give me Reglan and Benadryl I have that at home." No signs of infection noted. Patient at first refuses to get any blood work or imaging is reports" it is not infected and have not had a blood clot I just need my pain medication and go" advised patient that since he is status post surgery we need to do the x-ray as well as venous duplex ultrasound of lower extremity blood work to rule out infection.. Also I told patient that we will give 1 mg of Dilaudid which is diluted with saline IV. Patient is neurovascularly intact and has full strength in the affected side. Denies chest pain shortness of breath. Ddx considered but are not limited to: Cellulitis, DVT, nonhealing surgical site, healing surgical site knee sprain, strain, fracture, contusion, meniscus tear injury Vital signs: are WNL, pt. is afebrile Refused to get venous duplex ultrasound done as in "he said it is not necessary." H&PE are most consistent with: post op pain ORDERS: Knee x-ray, venous duplex ultrasound left lower extremity, CBC, CMP, UA, lactic acid, PT and PTT ER intervention: 1 mg of Dilaudid diluted with NS bolus DISCHARGE: At this time pt. is stable for d/c to home. Will provide printed patient care instructions, and any necessary prescriptions. Care plan and follow up instructions have been discussed with the patient prior to discharge. Follow-up with your surgeon, you have an active prescription for oxycodone, you refused to get venous duplex ultrasound left lower extremity you are risking possible blood clot you had full judgment in making this decision. However it could be risking blood clot in your leg and may need to be started on blood thinners. If worsening symptoms return to the emergency room (Mariana Skinner) Other X-Ray Diagnostic Results Other X-Ray Diagnostic Results : X-Ray ordered: Left knee # of Views/Limited Vs Complete: 3 View Indication: Pain EP Interpretation: Yes PA Xray: Interpretation reviewed, by supervising MD Interpretation: no dislocation, no fractures Impression: No acute disease Electronically Signed by: Mariana Hinton PA-C (Mariana Skinner) Other X-Ray Diagnostic Results : Electronically Signed by: P A documentation of Xray reviewed by me and is accurate, Neal Lopez MD (Neal Lopez MD) CT/MRI/US Diagnostic Results CT/MRI/US Diagnostic Results : Imaging Test Ordered: Venous duplex ultrasound left lower extremity (Mariana Skinner) Last Vital Signs Date Time Temp Pulse Resp B/P (MAP) Pulse Ox O2 Delivery O2 Flow Rate FiO2 10/15/20 14:05 97.2 86 16 153/95 99 Room Air (Mariana Skinner) Disposition: HOME, SELF-CARE Condition: Stable Patient Instructions: Knee Pain, [id number] Additional Instructions: At this time pt. is stable for d/c to home. Will provide printed patient care instructions, and any necessary prescriptions. Care plan and follow up instructions have been discussed with the patient prior to discharge. Follow-up with your surgeon, you have an active prescription for oxycodone, you refused to get venous duplex ultrasound left lower extremity you are risking possible blood clot you had full judgment in making this decision. However it could be risking blood clot in your leg and may need to be started on blood thinners. If worsening symptoms return to the emergency room Mariana Skinner Oct 15, 2020 14:27 Neal Lopez MD Oct 16, 2020 03:57
[2020-10-15 14:46] LABS: EOSINOPHILS % (AUTO) 2.5 % (0.0-3.0); HEMATOCRIT 37.6 % (42.0-52.0); HEMOGLOBIN 11.9 G/DL (14.2-18.0); LYMPHOCYTES % (AUTO) 25.1 % (20.0-45.0); MEAN CORPUSCULAR VOLUME 104 FL (80-99); MONOCYTES % (AUTO) 6.3 % (1.0-10.0); NEUTROPHILS % (AUTO) 65.2 % (45.0-75.0); PLATELET COUNT 536 K/UL (150-450); RED BLOOD COUNT 3.63 M/UL (4.70-6.10); WHITE BLOOD COUNT 9.8 K/UL (4.8-10.8)
[2020-10-15 14:53] LABS: INR 0.9 (0.9-1.1)
--- NOTE | 2020-10-15 14:55 | NUR ---
ED Nurse Note: pt refusing US, states that it is "unnecessary." xray was taken, blood work sent to lab
[2020-10-15 14:57] LABS: ANION GAP 9 mmol/L (5-15); BLOOD UREA NITROGEN 17 mg/dL (7-18); CALCIUM 9.3 MG/DL (8.5-10.1); CARBON DIOXIDE 28 MMOL/L (21-32); CHLORIDE 102 MMOL/L (98-107); CREATININE 1.2 MG/DL (0.55-1.30); SODIUM 139 MMOL/L (136-145)
[2020-10-15 15:05] LABS: ALANINE AMINOTRANSFERASE 24 U/L (12-78); ALBUMIN 3.6 G/DL (3.4-5.0); ALBUMIN/GLOBULIN RATIO 0.9 (1.0-2.7); ALKALINE PHOSPHATASE 116 U/L (46-116); ASPARTATE AMINO TRANSFERASE 24 U/L (15-37); BILIRUBIN,TOTAL 0.4 MG/DL (0.2-1.0)
[2020-10-15] MEDS ORDERED: cefTRIAXone 1 GM in NS 55 ML IVPB ONE (15:30)
--- NOTE | 2020-10-15 15:58 | Diagnostic Imaging Report ---
Indication: Left knee pain Technique: 3 views of the left knee Comparison: None Findings: There is a well-positioned left knee prosthesis. No periprosthetic lucency demonstrated. No definite effusion. No acute fracture. No dislocation. Impression: No acute process Left knee prosthesis, no unusual features
--- NOTE | 2020-10-15 16:05 | NUR ---
ED Nurse Note: pt would like to sign out AMA at this time, states that he does not want to wait for results to come back. risks of leaving were explained to pt but he still insists on leaving. pt was ambulatory with walker, signed necessary paperwork and left taking all belongings with him.
[2020-10-15 16:06] VITALS: BP 153/95
== END 2020-10-15 16:05 | disposition left against medical advice (07) ==
LOC: EMR 15:10
DX: G89.18 Other acute postprocedural pain (principal); Z96.652 Presence of left artificial knee joint; E11.9 Type 2 diabetes mellitus without complications; Z88.6 Allergy status to analgesic agent; Z88.5 Allergy status to narcotic agent; Z88.8 Allergy status to other drugs, medicaments and biological substances
CPT/HCPCS: 36415; 73562; 80053; 83605; 85025; 85610; 85730; 96365; 96375; J0696; J1170; J7030; Z7502; 99284